=== PATIENT | male | born 1990 | race Caucasian/White ===

== ENCOUNTER 2019-07-01 09:39 | Emergency (ER) | payer BC ==
[2019-07-01 10:19] VITALS: BP 117/74
--- NOTE | 2019-07-01 11:12 | ED ---
Throat Pain/Nasal Congestion - HPI Summary HPI Summary: 29 yo WM c/o right ear pain around the exteranl ear canal and tragus after coming out of the shower 2 days ago, denies d/c or deep ear pain - History of Current Complaint Chief Complaint: UCEar Time Seen by Provider: 07/01/19 10:17 Hx Obtained From: Patient Onset/Duration: Sudden Onset Severity: Moderate Associated Signs And Symptoms: Positive: Negative Cough: None - Allergies/Home Medications Allergies/Adverse Reactions: Allergies Allergy/AdvReac Type Severity Reaction Status Date / Time MS Eucalyptus Oil Allergy Intermediate Rash Verified 07/01/19 10:12 [Eucalyptus Oil] PMH/Surg Hx/FS Hx/Imm Hx Endocrine/Hematology History: Denies: Hx Diabetes, Hx Thyroid Disease Cardiovascular History: Denies: Hx Hypertension Respiratory History: Denies: Hx Asthma, Hx Chronic Obstructive Pulmonary Disease (COPD) GI History: Denies: Hx Ulcer Infectious Disease History: Yes Infectious Disease History: Denies: Hx Clostridium Difficile, Hx Hepatitis, Hx Human Immunodeficiency Virus (HIV), Hx of Known/Suspected MRSA, Hx Shingles, Hx Tuberculosis, Hx Known/ Suspected VRE, History Other Infectious Disease, Traveled Outside the in Last 30 Days - Family History Known Family History: Positive: Non-Contributory - Social History Alcohol Use: Occasionally Substance Use Type: Reports: None Smoking Status (MU): Light Every Day Tobacco Smoker Type: Cigarettes Review of Systems Constitutional: Negative Eyes: Negative ENT: Other - see HPI Cardiovascular: Negative Respiratory: Negative Gastrointestinal: Negative Genitourinary: Negative Musculoskeletal: Negative Neurological: Negative All Other Systems Reviewed And Are Negative: Yes Physical Exam - Summary Physical Exam Summary: Appearance: Positive: No Pain Distress Skin: Positive: Warm Head/Face: Positive: Normal Head/Face Inspection Eyes: Positive: Normal ENT: Positive: PAIN WITH MANIPULATION OF RIGHT PINNA AND TRAGUS, ERYTHEMATOUS RIHGT EXTERNAL EAR CANAL, TM WNL Neck: Positive: Supple Respiratory/Lung Sounds: Positive: Clear to Auscultation. Negative: Rales, Rhonchi, Wheezes Cardiovascular: Positive: Normal, RRR, S1, S2 Abdomen : soft, NT/ND Musculoskeletal: Positive: Normal, Strength/ROM Intact Neurological: Positive: CN Intact II-XII Vital Signs On Initial Exam: Initial Vitals Temp Pulse Resp BP Pulse Ox 37.1 C 86 18 117/74 98 07/01/19 10:13 07/01/19 10:13 07/01/19 10:13 07/01/19 10:13 07/01/19 10:13 Diagnostics - Vital Signs Vital Signs Temp Pulse Resp BP Pulse Ox 07/01/19 10:13 37.1 C 86 18 117/74 98 - Laboratory Lab Statement: Any lab studies that have been ordered have been reviewed, and results considered in the medical decision making process. EENT Course/Dx - Course Course Of Treatment: RIGHT OE- Ciprodex Otic drops - Differential Diagnoses Differential Diagnoses: Otitis Externa - Diagnoses Provider Diagnoses: Otitis externa Discharge ED - Sign-Out/Discharge Documenting (check all that apply): Patient Departure All imaging exams completed and their final reports reviewed: No Studies - Discharge Plan Condition: Stable Disposition: HOME Prescriptions: Ciproflox/Dexameth OTIC.SUSP* [Ciprodex OTIC.SUSP*] 4 drop .SEE ORDER TID 7 Days #1 btl Patient Education Materials: Otitis Externa (ED) - Billing Disposition and Condition Condition: STABLE Disposition: Home
== END 2019-07-01 11:18 | disposition home or self-care (01) ==
LOC: UCCORT 09:39
DX: H60.91 Unspecified otitis externa, right ear (principal); F17.210 Nicotine dependence, cigarettes, uncomplicated; Z91.09 Other allergy status, other than to drugs and biological substances
CPT/HCPCS: 99202; G0463